=== PATIENT | female | born 1960 | race Asian ===

== ENCOUNTER 2022-07-20 08:24 | Inpatient (IN) | payer MEDICARE ==
[~2022-07-20] VITALS: Ht 165.1 cm; Wt 34.3 kg
[2022-07-20] MEDS ORDERED: 0.9% SODIUM CHLORIDE 10 ML SYRINGE IVP PRN (08:30)
[2022-07-20] MEDS ORDERED: SODIUM CHLORIDE 0.9% 1,050 ML IV ONE (08:45)
[2022-07-20 08:47] LABS: ABG BASE EXCESS -6.7 mmol/L (-2.0-3.0); ABG CARBOXYHEMOGLOBIN 0.2 % (0.0-1.5); ABG HCO3 20.2 mmol/L (22.0-26.0); ABG METHEMOGLOBIN 0.3 % (0.0-1.5); ABG OXYGEN CONTENT 20.3 mL/dL (15.0-23.0); ABG OXYGEN SATURATION 96.3 % (95.0-98.0); ABG OXYHEMOGLOBIN 95.8 % (94.0-100.0); ABG PCO2 29 mmHg (35-45); ABG PH 7.412 (7.35-7.450); PO2, ARTERIAL BG 88.1 mmHg (79.0-87.0); SOURCE, BLOOD GAS ARTERIAL; TEMPERATURE, FAHRENHEIT, BG 98.6 FAHREN (96.0-98.6)
[2022-07-20 08:48] LABS: SITE, BLOOD GAS LFT BRACHIAL
[2022-07-20 08:49] LABS: O2 DEVICE,BLOOD GAS NON-REB (ROOM AIR)
[2022-07-20 08:59] LABS: COVID AG,FIA SOURCE NASAL SWAB
[2022-07-20] MEDS ORDERED: NiCARDipine HCL 25 MG in SODIUM CHLORIDE 0.9% 240 ML IV PRN (09:00)
[2022-07-20 09:06] LABS: BASOPHILS % (AUTO) 0.1 % (0.0-2.0); EOSINOPHILS % (AUTO) 0 % (1.0-6.0); HEMATOCRIT 45.7 % (36-46); HEMOGLOBIN 14.4 g/dL (12.0-16.0); LYMPHOCYTES # (AUTO) 1.4 K/uL (1.0-4.8); LYMPHOCYTES % (AUTO) 12.4 % (22.0-44.0); MEAN CORPUSCULAR HEMOGLOBIN 27.5 pg (26.0-34.0); MEAN CORPUSCULAR HGB CONC 31.6 G/dL (31.0-37.0); MEAN CORPUSCULAR VOLUME 87 fL (80-100); MONOCYTES # (AUTO) 0.5 K/uL (0.1-1.0); MONOCYTES % (AUTO) 4.6 % (2.0-9.0); NEUTROPHILS # (AUTO) 9.1 K/uL (1.8-7.7); NEUTROPHILS % (AUTO) 82.9 % (40.0-70.0); PLATELET COUNT (AUTO) 171 K/uL (150-450); RED BLOOD CELL COUNT(AUTO) 5.26 MIL/uL (4.00-5.20); RED CELL DISTRIBUTION WIDTH 14.4 % (11.5-14.5)
[2022-07-20 09:14] LABS: ANION GAP 15 mmol/L (8-16); CALCIUM, TOTAL 9.2 mg/dL (8.8-10.5); CARBON DIOXIDE 23 mmol/L (22-29); CHLORIDE 100 mmol/L (98-107); CREATININE 1.73 mg/dL (0.60-1.30); GLOMERULAR FILTR. RATE CALC 30 mL/min (>60); GLUCOSE,RANDOM 109 mg/dL (70-110); POTASSIUM 4.2 mmol/L (3.5-5.1); SODIUM SERUM 138 mmol/L (136-145); UREA NITROGEN, BLOOD 44 mg/dL (7-18)
[2022-07-20 09:24] LABS: B-TYPE NATRIURETIC PEPTIDE 271 pg/mL (0-100); LACTIC ACID 4.4 mmol/L (0.4-2.0)
[2022-07-20 09:31] LABS: D-DIMER 4.2 mg/L FEU (0.00-0.50); INR 0.9 (0.9-1.1); PROTHROMBIN TIME 9.8 SEC (9.4-11.6)
[2022-07-20 09:35] LABS: INFLUENZA TYPE A NEGATIVE FOR TYPE A (NEGATIVE)
[2022-07-20 09:40] LABS: ALANINE AMINOTRANSFERASE 18 U/L (12-78); ALKALINE PHOSPHATASE 57 U/L (46-116); ASPARTATE AMINOTRANSFERASE 82 U/L (15-37); BILIRUBIN,TOTAL 0.8 mg/dL (0.1-1.0); TOTAL PROTEIN, SERUM 7.6 g/dL (6.4-8.2)
[2022-07-20 09:43] LABS: INFLUENZA TYPE B POSITIVE FOR TYPE B (NEGATIVE)
[2022-07-20 09:44] LABS: CREATINE KINASE, TOTAL ONLY 1810 U/L (26-192)
[2022-07-20] MEDS ORDERED: AZITHROMYCIN 500 MG/NS 250 ML IV ONE (09:45)
[2022-07-20] MEDS ORDERED: CefTRIAXone 1 GM/DEXTROSE 50 ML IV ONE (09:45)
[2022-07-20] MEDS ORDERED: ASPIRIN 300 MG RECTAL SUPPOSITORY PR ONE (10:00)
[2022-07-20] MEDS ORDERED: ACETAMINOPHEN 650 MG/ISO-OSM 65 ML IV ONE (10:15)
[2022-07-20] MEDS ORDERED: IOHEXOL 350 MG/ML 100 ML VIAL ONE (10:15)
[2022-07-20] MEDS ORDERED: SODIUM CHLORIDE 0.9% 100 ML ONE (10:15)
[2022-07-20 10:20] LABS: APPEARANCE,URINE HAZY (CLEAR); BILIRUBIN,URINE NEGATIVE (NEGATIVE); GLUCOSE, URINE (UA) NEGATIVE (NEGATIVE); KETONES,URINE NEGATIVE (NEGATIVE); LEUKOCYTE ESTERASE ,URINE MODERATE (NEGATIVE); NITRATE,URINE NEGATIVE (NEGATIVE); OCCULT BLOOD,URINE SMALL (NEGATIVE); PH,URINE 5.5 (5.0-8.0); PROTEIN,URINE TRACE mg/dL (NEGATIVE); SPECIFIC GRAVITIY, URINE 1.011 (1.003-1.030); UROBILINOGEN,URINE <=1.0 mg/dL (<=1.0)
[2022-07-20 11:09] LABS: BACTERIA,URINE Moderate /HPF (None Seen); RBC,URINE 0-2 /HPF (0-2)
[2022-07-20] MEDS ORDERED: REMDESIVIR 200 MG in SODIUM CHLORIDE 0.9% 250 ML IV ONE (14:00)
[2022-07-20] MEDS: DEXAMETHASONE SOD PHOS 10 MG/ML VIAL IVP SCH (14:28)
[2022-07-20] MEDS ORDERED: ZOLPIDEM TARTRATE 5 MG TABLET PO PRN (16:45)
[2022-07-20] MEDS ORDERED: BISACODYL 10 MG RECTAL RECTAL SUPPOSITORY PR PRN (16:45)
[2022-07-20] MEDS ORDERED: ONDANSETRON HCL 4 MG/2 ML VIAL IVP PRN (16:45)
[2022-07-20] MEDS ORDERED: MORPHINE SULFATE 2 MG/ML SYRINGE IVP PRN (16:45)
[2022-07-20] MEDS ORDERED: ACETAMINOPHEN 325 MG TABLET PO PRN (16:45)
[2022-07-20] MEDS ORDERED: ALBUTEROL SULFATE 2.5 MG/0.5 ML NEB SOLUTION NEB PRN (16:45)
[2022-07-20] MEDS ORDERED: IPRATROPIUM BROMIDE 0.5 MG/2.5 ML NEB SOLUTION NEB PRN (16:45)
[2022-07-20] MEDS ORDERED: MAGNESIUM HYDROXIDE SUSPENSION 30 ML UDCUP PO PRN (16:45)
[2022-07-20] MEDS: PIPERACILLIN SODIUM/TAZOBACTAM 2.25 GM in DEXTROSE 5%-WATER 50 ML IV SCH (17:06)
[2022-07-20] MEDS ORDERED: OSELTAMIVIR PHOSPHATE 30 MG CAPSULE PO ONE (18:00)
[2022-07-20] MEDS: LABETALOL HCL 5 MG/ML 20 ML VIAL IVP PRN (20:49)
[2022-07-20 21:45] VITALS: BP 124/105
[2022-07-21] VITALS: BP 169/123
[2022-07-21] MEDS: PIPERACILLIN SODIUM/TAZOBACTAM 2.25 GM in DEXTROSE 5%-WATER 50 ML IV SCH ×4 (00:26→23:58)
[2022-07-21] MEDS: LABETALOL HCL 5 MG/ML 20 ML VIAL IVP PRN ×2 (00:27→11:39)
[2022-07-21] MEDS ORDERED: SODIUM CHLORIDE 0.9% 250 ML IV ONE (00:29)
[2022-07-21] MEDS: NITROGLYCERIN 2% (1 GM=INCH) OINTMENT PACKET TP SCH ×4 (03:22→23:58)
[2022-07-21 04:00] VITALS: BP 166/108
[2022-07-21] MEDS ORDERED: HydrALAZINE HCL 20 MG/ML VIAL IVP PRN (05:00)
[2022-07-21 05:32] LABS: ABG BASE EXCESS -2.8 mmol/L (-2.0-3.0); ABG CARBOXYHEMOGLOBIN 0.7 % (0.0-1.5); ABG HCO3 23.3 mmol/L (22.0-26.0); ABG METHEMOGLOBIN 0.3 % (0.0-1.5); ABG OXYGEN CONTENT 19.2 mL/dL (15.0-23.0); ABG OXYGEN SATURATION 95.3 % (95.0-98.0); ABG OXYHEMOGLOBIN 94.3 % (94.0-100.0); ABG PCO2 28 mmHg (35-45); ABG PH 7.485 (7.35-7.450); ABG TOTAL HEMOGLOBIN 14.5 G/dL (12.0-18.0); PO2, ARTERIAL BG 71.9 mmHg (79.0-87.0); SOURCE, BLOOD GAS ARTERIAL
[2022-07-21 05:36] LABS: SITE, BLOOD GAS RT RADIAL
[2022-07-21 05:37] LABS: ABG A-A DIFF O2 540.6 mmHg (10-20.0); O2 DEVICE,BLOOD GAS HI FL CANNULA (ROOM AIR)
[2022-07-21 06:20] LABS: BASOPHILS % (AUTO) 0.1 % (0.0-2.0); EOSINOPHILS % (AUTO) 0 % (1.0-6.0); HEMATOCRIT 45.9 % (36-46); HEMOGLOBIN 14.7 g/dL (12.0-16.0); LYMPHOCYTES # (AUTO) 0.5 K/uL (1.0-4.8); LYMPHOCYTES % (AUTO) 5.5 % (22.0-44.0); MEAN CORPUSCULAR HEMOGLOBIN 27.6 pg (26.0-34.0); MEAN CORPUSCULAR VOLUME 86 fL (80-100); MONOCYTES # (AUTO) 0.4 K/uL (0.1-1.0); MONOCYTES % (AUTO) 3.6 % (2.0-9.0); PLATELET COUNT (AUTO) 164 K/uL (150-450); RED BLOOD CELL COUNT(AUTO) 5.32 MIL/uL (4.00-5.20); RED CELL DISTRIBUTION WIDTH 14.5 % (11.5-14.5)
[2022-07-21 06:22] LABS: NEUTROPHILS % (AUTO) 90.8 % (40.0-70.0)
[2022-07-21 06:34] LABS: BILIRUBIN,TOTAL 0.5 mg/dL (0.1-1.0); POTASSIUM 4.3 mmol/L (3.5-5.1)
[2022-07-21 07:06] LABS: GLUCOSE,POINT OF CARE 127 MG/DL (70-110)
[2022-07-21 07:15] LABS: ALBUMIN 2.5 g/dL (3.4-5.0); CALCIUM, TOTAL 9.3 mg/dL (8.8-10.5); CREATININE 1.01 mg/dL (0.60-1.30)
[2022-07-21 08:00] VITALS: BP 141/98
[2022-07-21] MEDS: OSELTAMIVIR PHOSPHATE 30 MG CAPSULE NG SCH (09:04)
[2022-07-21] MEDS: ETHYL ALCOHOL 62% ANTISEPTIC NASAL SANITIZER 0.6 ML AMPUL NASAL SCH ×2 (09:04→20:22)
[2022-07-21] MEDS: PANTOPRAZOLE SODIUM 40 MG/VIAL IVP SCH (09:04)
[2022-07-21 12:00] VITALS: BP 143/104
[2022-07-21] MEDS: DEXAMETHASONE SOD PHOS 10 MG/ML VIAL IVP SCH (13:05)
[2022-07-21] MEDS: REMDESIVIR 100 MG in SODIUM CHLORIDE 0.9% 250 ML IV SCH (13:05)
[2022-07-21 16:00] VITALS: BP 140/90
[2022-07-21 20:00] VITALS: BP 146/103
[2022-07-21] MEDS: METOPROLOL TARTRATE 25 MG TABLET NG SCH (20:22)
[2022-07-22] VITALS: BP 145/93
[2022-07-22 04:00] VITALS: BP 139/92
[2022-07-22] MEDS ORDERED: SODIUM CHLORIDE 0.9% 250 ML IV ONE (04:10)
[2022-07-22] MEDS: NITROGLYCERIN 2% (1 GM=INCH) OINTMENT PACKET TP SCH ×4 (05:09→23:51)
[2022-07-22 06:23] LABS: ALBUMIN 2.3 g/dL (3.4-5.0); BILIRUBIN,TOTAL 0.5 mg/dL (0.1-1.0); C-REACTIVE PROTEIN QUANT 18.16 mg/dL (0.00-0.30); CREATININE 0.95 mg/dL (0.60-1.30); POTASSIUM 3.8 mmol/L (3.5-5.1); TOTAL PROTEIN, SERUM 6.6 g/dL (6.4-8.2)
[2022-07-22 08:00] VITALS: BP 149/94
[2022-07-22] MEDS: PIPERACILLIN SODIUM/TAZOBACTAM 2.25 GM in DEXTROSE 5%-WATER 50 ML IV SCH ×3 (08:22→21:23)
[2022-07-22] MEDS: METOPROLOL TARTRATE 25 MG TABLET NG SCH ×2 (08:23→21:24)
[2022-07-22] MEDS: OSELTAMIVIR PHOSPHATE 30 MG CAPSULE NG SCH (08:23)
[2022-07-22] MEDS: ETHYL ALCOHOL 62% ANTISEPTIC NASAL SANITIZER 0.6 ML AMPUL NASAL SCH ×2 (08:23→21:23)
[2022-07-22] MEDS: PANTOPRAZOLE SODIUM 40 MG/VIAL IVP SCH (08:23)
[2022-07-22 12:00] VITALS: BP 143/98
[2022-07-22] MEDS: REMDESIVIR 100 MG in SODIUM CHLORIDE 0.9% 250 ML IV SCH (13:33)
[2022-07-22] MEDS: DEXAMETHASONE SOD PHOS 10 MG/ML VIAL IVP SCH (13:33)
[2022-07-22 16:00] VITALS: BP 147/106
[2022-07-22 20:00] VITALS: BP 106/71
[2022-07-23] VITALS: BP 110/77
[2022-07-23] MEDS: PIPERACILLIN SODIUM/TAZOBACTAM 2.25 GM in DEXTROSE 5%-WATER 50 ML IV SCH ×2 (02:09→08:59)
[2022-07-23 04:00] VITALS: BP 131/89
[2022-07-23] MEDS: HYDROCODONE/ACETAMINOPHEN 5-325 MG TABLET PO PRN ×2 (05:46→20:49)
[2022-07-23] MEDS: NITROGLYCERIN 2% (1 GM=INCH) OINTMENT PACKET TP SCH ×3 (05:46→17:56)
[2022-07-23 06:29] LABS: ALBUMIN 2.3 g/dL (3.4-5.0); BILIRUBIN,TOTAL 0.4 mg/dL (0.1-1.0); C-REACTIVE PROTEIN QUANT 9.13 mg/dL (0.00-0.30); CALCIUM, TOTAL 8.7 mg/dL (8.8-10.5); POTASSIUM 3.7 mmol/L (3.5-5.1); TOTAL PROTEIN, SERUM 6.6 g/dL (6.4-8.2)
[2022-07-23 08:00] VITALS: BP 143/99
[2022-07-23] MEDS: ETHYL ALCOHOL 62% ANTISEPTIC NASAL SANITIZER 0.6 ML AMPUL NASAL SCH ×2 (08:59→20:50)
[2022-07-23] MEDS: PANTOPRAZOLE SODIUM 40 MG/VIAL IVP SCH (09:00)
[2022-07-23] MEDS: METOPROLOL TARTRATE 25 MG TABLET NG SCH ×2 (09:00→20:49)
[2022-07-23] MEDS: OSELTAMIVIR PHOSPHATE 30 MG CAPSULE NG SCH (09:00)
[2022-07-23 12:00] VITALS: BP 131/84
[2022-07-23] MEDS: DEXAMETHASONE SOD PHOS 10 MG/ML VIAL IVP SCH (14:57)
[2022-07-23] MEDS: REMDESIVIR 100 MG in SODIUM CHLORIDE 0.9% 250 ML IV SCH (14:57)
[2022-07-23] MEDS ORDERED: AMPICILLIN SODIUM/SULBACTAM NA 3 GM in SODIUM CHLORIDE 0.9% 100 ML IV SCH (15:00)
[2022-07-23] MEDS: MetroNIDAZOLE 500 MG TABLET PO SCH (15:57)
[2022-07-23] MEDS: CefTRIAXone 1 GM/DEXTROSE 50 ML IV SCH (15:57)
[2022-07-23 16:00] VITALS: BP 154/98
[2022-07-23 20:00] VITALS: BP 135/90
[2022-07-24] VITALS (7 sets, daily range): BP systolic 114–150; BP diastolic 71–112
[2022-07-24] MEDS: MetroNIDAZOLE 500 MG TABLET PO SCH ×4 (00:15→23:10)
[2022-07-24] MEDS: NITROGLYCERIN 2% (1 GM=INCH) OINTMENT PACKET TP SCH ×2 (00:15→05:13)
[2022-07-24] MEDS: HYDROCODONE/ACETAMINOPHEN 5-325 MG TABLET PO PRN (02:35)
[2022-07-24 06:07] LABS: ALANINE AMINOTRANSFERASE 12 U/L (12-78); ALBUMIN 2.2 g/dL (3.4-5.0); ALKALINE PHOSPHATASE 63 U/L (46-116); ANION GAP 7 mmol/L (8-16); ASPARTATE AMINOTRANSFERASE 27 U/L (15-37); BILIRUBIN,TOTAL 0.2 mg/dL (0.1-1.0); CALCIUM, TOTAL 8.5 mg/dL (8.8-10.5); CARBON DIOXIDE 30 mmol/L (22-29); CHLORIDE 110 mmol/L (98-107); CREATININE 0.93 mg/dL (0.60-1.30); GLUCOSE,RANDOM 290 mg/dL (70-110); POTASSIUM 3.7 mmol/L (3.5-5.1); SODIUM SERUM 147 mmol/L (136-145); TOTAL PROTEIN, SERUM 6.2 g/dL (6.4-8.2); UREA NITROGEN, BLOOD 44 mg/dL (7-18)
[2022-07-24 06:13] LABS: GLOMERULAR FILTR. RATE CALC > 60 mL/min (>60)
[2022-07-24] MEDS: PANTOPRAZOLE SODIUM 40 MG/VIAL IVP SCH (09:16)
[2022-07-24] MEDS: METOPROLOL TARTRATE 25 MG TABLET NG SCH ×2 (09:16→20:32)
[2022-07-24] MEDS: OSELTAMIVIR PHOSPHATE 30 MG CAPSULE NG SCH (09:16)
[2022-07-24 12:26] LABS: GLUCOMETER DEV NAME(LOC) 5S.2B; GLUCOSE,POINT OF CARE 244 MG/DL (70-110)
[2022-07-24] MEDS ORDERED: SODIUM CHLORIDE 0.9% 250 ML IV ONE (14:11)
[2022-07-24] MEDS ORDERED: DEXTROSE 50%-WATER 25 GM/50 ML SYRINGE IVP PRN ×2 (15:00→16:00)
[2022-07-24] MEDS: DEXAMETHASONE SOD PHOS 10 MG/ML VIAL IVP SCH (15:35)
[2022-07-24] MEDS: CefTRIAXone 1 GM/DEXTROSE 50 ML IV SCH (15:35)
[2022-07-24] MEDS: INSULIN REGULAR, HUMAN 100 UNITS/ML SQ PRN ×2 (17:20→23:28)
[2022-07-24 17:41] LABS: GLUCOMETER DEV NAME(LOC) 5N.1C; GLUCOSE,POINT OF CARE 237 MG/DL (70-110)
[2022-07-24] MEDS: REMDESIVIR 100 MG in SODIUM CHLORIDE 0.9% 250 ML IV SCH (20:32)
[2022-07-25] VITALS: BP 147/82
[2022-07-25 05:08] VITALS: BP 143/93
[2022-07-25] MEDS: INSULIN REGULAR, HUMAN 100 UNITS/ML SQ PRN ×2 (05:47→13:20)
[2022-07-25 07:44] LABS: EOSINOPHILS % (AUTO) 0.1 % (1.0-6.0); HEMATOCRIT 40.4 % (36-46); HEMOGLOBIN 12.7 g/dL (12.0-16.0); LYMPHOCYTES # (AUTO) 0.4 K/uL (1.0-4.8); LYMPHOCYTES % (AUTO) 3.3 % (22.0-44.0); MEAN CORPUSCULAR HEMOGLOBIN 26.8 pg (26.0-34.0); MEAN CORPUSCULAR HGB CONC 31.3 G/dL (31.0-37.0); MEAN CORPUSCULAR VOLUME 86 fL (80-100); MONOCYTES # (AUTO) 1.3 K/uL (0.1-1.0); MONOCYTES % (AUTO) 11.1 % (2.0-9.0); NEUTROPHILS # (AUTO) 10.2 K/uL (1.8-7.7); PLATELET COUNT (AUTO) 218 K/uL (150-450); RED BLOOD CELL COUNT(AUTO) 4.73 MIL/uL (4.00-5.20); RED CELL DISTRIBUTION WIDTH 14.8 % (11.5-14.5)
[2022-07-25 07:49] LABS: NEUTROPHILS % (AUTO) 85.5 % (40.0-70.0)
[2022-07-25 07:53] VITALS: BP 146/112
[2022-07-25 08:03] LABS: ALANINE AMINOTRANSFERASE 6 U/L (12-78); ALBUMIN 2.1 g/dL (3.4-5.0); ALKALINE PHOSPHATASE 69 U/L (46-116); ANION GAP 6 mmol/L (8-16); ASPARTATE AMINOTRANSFERASE 24 U/L (15-37); BILIRUBIN,TOTAL 0.2 mg/dL (0.1-1.0); C-REACTIVE PROTEIN QUANT 4.52 mg/dL (0.00-0.30); CALCIUM, TOTAL 8.4 mg/dL (8.8-10.5); CARBON DIOXIDE 29 mmol/L (22-29); CHLORIDE 110 mmol/L (98-107); CREATININE 0.76 mg/dL (0.60-1.30); FERRITIN 679 ng/mL (8-252); GLOMERULAR FILTR. RATE CALC > 60 mL/min (>60); GLUCOSE,RANDOM 214 mg/dL (70-110); POTASSIUM 3.6 mmol/L (3.5-5.1); SODIUM SERUM 145 mmol/L (136-145); UREA NITROGEN, BLOOD 42 mg/dL (7-18)
[2022-07-25] MEDS: PANTOPRAZOLE SODIUM 40 MG/VIAL IVP SCH (08:59)
[2022-07-25] MEDS: METOPROLOL TARTRATE 25 MG TABLET NG SCH (09:00)
[2022-07-25] MEDS: OSELTAMIVIR PHOSPHATE 30 MG CAPSULE NG SCH (09:00)
[2022-07-25] MEDS: MetroNIDAZOLE 500 MG TABLET PO SCH (09:00)
[2022-07-25 11:22] VITALS: BP 134/108
[2022-07-25] MEDS: DEXAMETHASONE SOD PHOS 10 MG/ML VIAL IVP SCH (13:09)
[2022-07-25] MEDS ORDERED: SODIUM CHLORIDE 0.9% 1,000 ML ONE (14:39)
[2022-07-25 20:51] LABS: GLUCOMETER DEV NAME(LOC) 5N.1C; GLUCOSE,POINT OF CARE 258 MG/DL (70-110)
[2022-07-25 20:51] LABS: GLUCOMETER DEV NAME(LOC) 5N.1C; GLUCOSE,POINT OF CARE 197 MG/DL (70-110)
[2022-07-25 20:51] LABS: GLUCOMETER DEV NAME(LOC) 5N.1C; GLUCOSE,POINT OF CARE 219 MG/DL (70-110)
[2022-07-25] MEDS ORDERED: METOPROLOL TARTRATE 25 MG TABLET NG SCH (21:00)
== END 2022-07-25 14:30 | DRG 871 ==
LOC: EMS 08:25 → AHU 11:50 → ICU 20:18 → 5S 07-24 05:45
PROVIDERS: ADMIT Hospitalist; ATTEND Hospitalist
PROC: 5A0935A Assistance with Respiratory Ventilation, Less than 24 Consecutive Hours, High Flow/Velocity Cannula (ICD-10-PCS; principal; 2022-07-20)
PROC: XW033E5 Introduction of Remdesivir Anti-infective into Peripheral Vein, Percutaneous Approach, New Technology Group 5 (ICD-10-PCS; 2022-07-20)
PROC: 5A0945A Assistance with Respiratory Ventilation, 24-96 Consecutive Hours, High Flow/Velocity Cannula (ICD-10-PCS; 2022-07-21)
DX: A41.89 Other specified sepsis (principal); E43 Unspecified severe protein-calorie malnutrition; J69.0 Pneumonitis due to inhalation of food and vomit; J96.01 Acute respiratory failure with hypoxia; U07.1 COVID-19; J10.00 Influenza due to other identified influenza virus with unspecified type of pneumonia; I63.541 Cerebral infarction due to unspecified occlusion or stenosis of right cerebellar artery; I21.A1 Myocardial infarction type 2; M62.82 Rhabdomyolysis; N39.0 Urinary tract infection, site not specified; N17.9 Acute kidney failure, unspecified; E87.20 Acidosis, unspecified; Z68.1 Body mass index [BMI] 19.9 or less, adult; Z66 Do not resuscitate; I10 Essential (primary) hypertension; D72.810 Lymphocytopenia; F01.50 Vascular dementia, unspecified severity, without behavioral disturbance, psychotic disturbance, mood disturbance, and anxiety; I71.21 Aneurysm of the ascending aorta, without rupture; I67.1 Cerebral aneurysm, nonruptured; Z74.01 Bed confinement status; Z86.73 Personal history of transient ischemic attack (TIA), and cerebral infarction without residual deficits
CPT/HCPCS: 36600; 51702; 70450; 70496; 70498; 71045; 71250; 71275; 80053; 81001; 82550; 82728; 82805; 82962; 83605; 83880; 84145; 84484; 85025; 85379; 85610; 85730; 86140; 87040; 87081; 87086; 87186; 87804; 92610; 93005; 93306; 99291; C9113; G0378; J0131; J0295; J0360; J0456; J0696; J1100; J2543; J3490; J7030; J7050; J7060; Q9967; 36415-L1; 36415-TC